=== PATIENT | male | born 1945 | race Caucasian/White ===

== ENCOUNTER 2020-12-11 11:15 | Outpatient (CLI) | payer MEDICARE, OTHER, SELFPAY ==
--- NOTE | 2020-12-11 11:21 | XR_ITS ---
WS: [id number] RIGHT KNEE: 2 VIEW(S) TECHNIQUE: AP and lateral. HISTORY: Rt knee pain for 10 days. Denies injury. COMPARISON: None available. No fracture or dislocation. No joint space narrowing or osteophytes. Ovoid loose body measuring 14 mm projects over the posterior knee joint, this loose bodies just media l to the tibial spines. No soft tissue abnormality. XR/XR knee RT 1-2V [id number] IMPRESSION: 1. No significant degenerative joint disease. 2. 14 mm loose body over the posterior knee joint. This is probably an accesso ry ossicle. Fabella is usually along the posterior medial knee. This is along t he posterior lateral knee. No donor site to suggest this is a loose body.
== END 2020-12-11 11:16 | disposition home or self-care (01) ==
PROVIDERS: Visit Provider Family Medicine Adult Medicine
DX: M25.561 Pain in right knee (principal)
CPT/HCPCS: 73560

== ENCOUNTER → 2022-02-01 10:01 | Outpatient (BNVA) | payer MEDICARE, SELFPAY | PROVIDERS: PCP Family Medicine Adult Medicine; Visit Provider Family Medicine Adult Medicine | DX: R19.5 Other fecal abnormalities (principal); Z98.890 Other specified postprocedural states; Z00.00 Encounter for general adult medical examination without abnormal findings; R19.7 Diarrhea, unspecified | CPT/HCPCS: 80053; 84443; 85025 ==

== ENCOUNTER → 2022-02-12 07:29 | Outpatient (BNVA) | payer MEDICARE, OTHER, SELFPAY | PROVIDERS: PCP Family Medicine Adult Medicine; Visit Provider Surgery | DX: R19.7 Diarrhea, unspecified (principal); R12 Heartburn | CPT/HCPCS: 99203 ==

== ENCOUNTER 2022-03-18 06:59 | Day surgery (SDC) | payer MEDICARE, OTHER, SELFPAY ==
[2022-03-12 09:50] VITALS: BMI 24.3
[2022-03-18 07:28] VITALS: BP 129/76; PULSE 64; RESP 18; TEMP 36.4; O2SAT 97
[2022-03-18] MEDS: sodium chloride 0.9% 1,000 ML 30 ML IV (07:36)
--- NOTE | 2022-03-18 07:36 | ANES.PREANE2 ---
Pre-Anesthetic Assessment Height/Weight: Height 1.88 m Weight 86.183 kg Temp Pulse Resp BP Pulse Ox O2 Del Method 97.6 F 64 18 129/76 97 03/18/22 07:28 03/18/22 07:28 03/18/22 07:28 03/18/22 07:28 03/18/22 07:28 03/18/22 07:28 Preop Diagnosis: heartburn/screening Operation Date: 03/18/22 08:30 Proposed Procedures p [id number] EGD 57497 Colonoscopy R19.7,R12,Z12.11(Not Applicable) - Genaro Peterson DO s Colonoscopy(Not Applicable) - Genaro Peterson DO Familial anesthetic complications: none Was Beta Ricardo taken within 24 hours: N/A Was Clonidine taken within 24 hours: N/A Last intake: Intake Last Liquid Date 03/17/22 Last Liquid Time 20:00 Last Solid Date 03/16/22 Last Solid Time 17:00 Social No alcohol and No tobacco Exam alert, oriented x 3, clear to auscultation bilaterally and regular rate & rhythm Airway Submandibular: within normal limits Cervical ROM: within normal limits Mallampati: Class III Dentition: full Pulmonary None reported CV/HEM None reported None reported Hepatic None reported GI Gastroesophageal Reflux Disease (Tums controls) Metabolic None reported Musc/skel None reported Neuropsych None reported Anesthetic Plan ASA status: 2 Anesthesia: MAC Risk of > 500 ml blood loss (7ml/kg in children): No Medications/Allergies Allergies Allergy/AdvReac Type Severity Reaction Status Date / Time No Known Allergies Allergy Verified 02/22/22 09:11 [facility] Anesthesia Medical History (Updated 02/23/22 @ 09:27 by Donny Tate MD) Constipation Hx of colonic polyps Knee pain, acute Loose bowel movements Well adult health check Surgical History History of intestinal surgery 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 and last colonoscopy was 17 years ago Hx of colonoscopy Social History (Updated 02/15/22 @ 14:48 by Catherine Jin LPN) Smoking and tobacco status: current some day smoker (nicorette tabs) smokeless tobacco Smokeless tobacco user: chewing tobacco Smoking risk assessment/counseling performed?: No Alcohol intake: current Alcohol intake frequency: holidays/special occasions only Desire information about alcohol rehabilitation?: No Counseling given: No Desire information about substance/drug rehabilitation?: No Counseling given: No Adopted: No Caregiver/support person: No Lives independently: Yes Current occupational status: retired Current gender identity: Male Special pamela needs: No Agree to transfusion: Yes Data Anesthesia Cardiac Studies: No Data to Display
--- NOTE | 2022-03-18 08:14 | P.HP_ITS ---
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 and last colonoscopy was 17 years ago Hx of colonoscopy Social History (Updated 02/15/22 @ 14:48 by Catherine Jin LPN) Smoking and tobacco status: current some day smoker (nicorette tabs) smokeless tobacco Smokeless tobacco user: chewing tobacco Smoking risk assessment/counseling performed?: No Alcohol intake: current Alcohol intake frequency: holidays/special occasions only Desire information about alcohol rehabilitation?: No Counseling given: No Desire information about substance/drug rehabilitation?: No Counseling given: No Adopted: No Caregiver/support person: No Lives independently: Yes Current occupational status: retired Current gender identity: Male Special pamela needs: No Agree to transfusion: Yes Vitals/I&O/Wt Last Vital Signs Temp 97.6 F 03/18/22 07:28 Pulse 64 03/18/22 07:28 Resp 18 03/18/22 07:28 BP 129/76 03/18/22 07:28 Pulse Ox 97 03/18/22 07:28 O2 Del Method 03/18/22 07:28 A&P Assessment and plan (1) Heartburn: (2) Colon cancer screening: (3) Hx of colonic polyps: Plan EGD and colonoscopy Attestations Medical Necessity Statement*: Home Coding Level of Care Code Acute Visual Merchandising Coordinator for Chg Fwd Diagnoses Heartburn R12 Colon cancer screening Z12.11 Hx of colonic polyps Z86.010
[2022-03-18 08:49] VITALS: BP 102/58; PULSE 55; RESP 16; TEMP 36.1; O2SAT 94
--- NOTE | 2022-03-18 08:55 | ANE.PACU2 ---
Inpatient post-anesthesia follow up: Airway intact: Yes Vital signs: Temperature 97 F Pulse Rate 55 Respiratory Rate 16 Blood Pressure 102/58 Pulse Oximetry 94 Oxygen Delivery Me thod Room Air Oxygen Flow Rate Fraction of Inspir ed Oxygen Hydration adequate: Yes Nausea and vomiting: No Pain level: 1 Mental status: Baseline
[2022-03-18 09:05] VITALS: BP 118/77; PULSE 50; RESP 18; O2SAT 97
== END 2022-03-18 09:24 | disposition home or self-care (01) ==
PROVIDERS: PCP Family Medicine Adult Medicine; Visit Provider Surgery
PROC: 0DJ08ZZ Inspection of Upper Intestinal Tract, Via Natural or Artificial Opening Endoscopic (ICD-10-PCS; CPT 43235; principal; 2022-03-18 08:30)
PROC: 0DJD8ZZ Inspection of Lower Intestinal Tract, Via Natural or Artificial Opening Endoscopic (ICD-10-PCS; CPT 45378; 2022-03-18 08:30)
DX: Z12.11 Encounter for screening for malignant neoplasm of colon (principal); R12 Heartburn; Z86.010 Personal history of colon polyps; K29.50 Unspecified chronic gastritis without bleeding; B96.81 Helicobacter pylori [H. pylori] as the cause of diseases classified elsewhere; K21.00 Gastro-esophageal reflux disease with esophagitis, without bleeding; Z85.038 Personal history of other malignant neoplasm of large intestine; Z90.49 Acquired absence of other specified parts of digestive tract; F17.220 Nicotine dependence, chewing tobacco, uncomplicated
CPT/HCPCS: 43239; 45380; 45385; 82274; 83630; 87493; 87506; 88305; 88342; J2704; J7030

== ENCOUNTER → 2022-04-01 15:08 | Outpatient (BNVA) | payer MEDICARE, OTHER, SELFPAY | PROVIDERS: PCP Family Medicine Adult Medicine; Visit Provider Surgery | DX: B96.81 Helicobacter pylori [H. pylori] as the cause of diseases classified elsewhere (principal); Z09 Encounter for follow-up examination after completed treatment for conditions other than malignant neoplasm; K29.70 Gastritis, unspecified, without bleeding; K63.5 Polyp of colon | CPT/HCPCS: 99212 ==

== ENCOUNTER → 2024-01-30 11:29 | Outpatient (BNVA) | payer MEDICARE, OTHER, SELFPAY | PROVIDERS: PCP Family Medicine Adult Medicine | DX: M17.11 Unilateral primary osteoarthritis, right knee (principal); M25.761 Osteophyte, right knee; M25.861 Other specified joint disorders, right knee | CPT/HCPCS: 73562 ==

== ENCOUNTER → 2024-02-18 08:25 | Outpatient (BNVA) | payer MEDICARE, OTHER, SELFPAY | PROVIDERS: PCP Family Medicine Adult Medicine; Visit Provider Specialist | DX: M17.11 Unilateral primary osteoarthritis, right knee (principal) | CPT/HCPCS: 20610; 73560; 73565; 99204; J7318 ==

== ENCOUNTER → 2024-08-18 10:09 | Outpatient (BNVA) | payer MEDICARE, OTHER, SELFPAY | PROVIDERS: PCP Family Medicine; Visit Provider Specialist | DX: M17.11 Unilateral primary osteoarthritis, right knee (principal) | CPT/HCPCS: 20610; 99213; J7318 ==

== ENCOUNTER → 2025-02-18 09:24 | Outpatient (BNVA) | payer MEDICARE, OTHER, SELFPAY | PROVIDERS: PCP Family Medicine; Visit Provider Specialist | DX: M17.11 Unilateral primary osteoarthritis, right knee (principal) | CPT/HCPCS: 20610; J7318 ==